=== PATIENT | female | born 1960 | race Caucasian/White ===

== ENCOUNTER → 2016-02-27 | Outpatient (CLI) | payer OTHER ==
[2016-02-27 16:45] LABS: HEMOGLOBIN A1C 9.63 % (4.2-6.0); MEAN BLOOD GLUCOSE (CALC) 234.679 mg/dL
== END ==
LOC: LAB 16:21
PROVIDERS: ATTEND Family Medicine
DX: E11.9 Type 2 diabetes mellitus without complications (principal)
CPT/HCPCS: 36415; 83036

== ENCOUNTER → 2016-02-28 | Outpatient (CLI) | payer OTHER ==
--- NOTE | 2016-02-28 15:03 | DI ---
XR FOREARM 2VW,02/28/2016 11:13 AM: Clinical History: Injury of the left upper extremity. Previous Exam: None at this facility. Findings: AP and lateral views of the left forearm are obtained, and demonstrate anatomic alignment without fra ctures. There is some soft tissue irregularity and postsurgical changes within the cubital fossa. A few peripheral vascular calcifications are also seen. Impression: No fractures.
== END ==
LOC: RAD 11:25
PROVIDERS: ATTEND Family Medicine
DX: T22.032A Burn of unspecified degree of left upper arm, initial encounter (principal); X17.XXXA Contact with hot engines, machinery and tools, initial encounter; Y93.G3 Activity, cooking and baking
CPT/HCPCS: 73090

== ENCOUNTER → 2016-03-15 | Outpatient (CLI) | payer OTHER ==
[2016-03-15 10:03] LABS: HEMATOCRIT 49.9 % (37.0-47.0); HEMOGLOBIN 16.7 g/dL (12.0-16.0); MEAN CORPUSCULAR HEMOGLOBIN 30.9 PG (27-31); MEAN CORPUSCULAR HGB CONC 33.5 g/dL (33-37); MEAN PLATELET VOLUME 10.6 FL (7.4-12.2); RDW COEFFICIENT OF VARIATION 15.2 % (11.5-14.5); RED BLOOD COUNT 5.4 10^6/uL (4.20-5.40); WHITE BLOOD COUNT 10.84 10^3/uL (4.8-10.8)
[2016-03-15 10:26] LABS: BLOOD UREA NITROGEN 18 mg/dL (7-22); CALCIUM 10.1 mg/dL (8.7-10.7); CHLORIDE 106 meq/L (98-112); CREATININE 0.8 mg/dL (0.50-1.20); EST GLOMERULAR FILTRATION > 60 (>60 ml/min/1.73m(2)); GLUCOSE 130 mg/dL (78-110); PHOSPHORUS 2.5 mg/dl (2.4-4.3); POTASSIUM 4.2 meq/L (3.8-5.2); SODIUM 140 meq/L (135-145)
== END ==
LOC: LAB 09:41
PROVIDERS: ATTEND Internal Medicine Nephrology
DX: I12.9 Hypertensive chronic kidney disease with stage 1 through stage 4 chronic kidney disease, or unspecified chronic kidney disease (principal); N18.2 Chronic kidney disease, stage 2 (mild); D63.1 Anemia in chronic kidney disease; N25.81 Secondary hyperparathyroidism of renal origin; Z94.0 Kidney transplant status
CPT/HCPCS: 36415; 80069; 80197; 83970; 85027

== ENCOUNTER → 2016-05-27 | Outpatient (CLI) | payer OTHER ==
[2016-05-27 07:58] LABS: HEMOGLOBIN A1C 7.97 % (4.2-6.0)
== END ==
LOC: LAB 07:38
PROVIDERS: ATTEND Family Medicine
DX: E11.9 Type 2 diabetes mellitus without complications (principal); Z79.4 Long term (current) use of insulin
CPT/HCPCS: 36415; 83036

== ENCOUNTER → 2016-08-26 | Outpatient (CLI) | payer OTHER ==
[2016-08-26 12:11] LABS: HEMOGLOBIN A1C 8.26 % (4.2-6.0)
== END ==
LOC: LAB 11:44
PROVIDERS: ATTEND Family Medicine
DX: E11.9 Type 2 diabetes mellitus without complications (principal); Z79.4 Long term (current) use of insulin
CPT/HCPCS: 36415; 83036

== ENCOUNTER → 2016-09-09 | Outpatient (CLI) | payer OTHER ==
[2016-09-09 07:42] LABS: HEMOGLOBIN A1C 7.82 % (4.2-6.0)
== END ==
LOC: LAB 07:17
PROVIDERS: ATTEND Family Medicine
DX: E11.9 Type 2 diabetes mellitus without complications (principal); Z79.4 Long term (current) use of insulin
CPT/HCPCS: 36415; 83036

== ENCOUNTER → 2016-09-17 | Outpatient (CLI) | payer OTHER ==
[2016-09-17 07:37] LABS: HEMATOCRIT 48.7 % (37.0-47.0); HEMOGLOBIN 16.2 g/dL (12.0-16.0); MEAN CORPUSCULAR HEMOGLOBIN 30.1 PG (27-31); MEAN CORPUSCULAR HGB CONC 33.3 g/dL (33-37); MEAN CORPUSCULAR VOLUME 90.4 FL (81-99); MEAN PLATELET VOLUME 10.1 FL (7.4-12.2); RED BLOOD COUNT 5.39 10^6/uL (4.20-5.40)
[2016-09-17 09:28] LABS: BLOOD UREA NITROGEN 25 mg/dL (7-22); BUN/CREATININE RATIO 27.77 (6-20); CALCIUM 9.4 mg/dL (8.7-10.7); EST GLOMERULAR FILTRATION > 60 (>60 ml/min/1.73m(2)); SERUM ALBUMIN 3.9 g/dL (3.5-4.8)
== END ==
LOC: LAB 07:16
PROVIDERS: ATTEND Internal Medicine Nephrology
DX: N18.2 Chronic kidney disease, stage 2 (mild) (principal); Z94.0 Kidney transplant status
CPT/HCPCS: 36415; 80069; 80197; 83970; 85027

== ENCOUNTER → 2016-09-27 | Outpatient (CLI) | payer OTHER | LOC: LAB 07:39 | PROVIDERS: ATTEND Internal Medicine Nephrology | DX: Z94.0 Kidney transplant status (principal) | CPT/HCPCS: 36415; 80197 ==

== ENCOUNTER → 2016-10-15 | Outpatient (CLI) | payer OTHER ==
--- NOTE | 2016-10-15 11:23 | DI ---
CT ABDOMEN SCAN WITHOUT IV CONTRAST, 10/15/2016 10:13 AM : Clinical History: Polycystic kidney disease. Previous Exam: 03/20/2007. Scans are performed from the lower lung bases through the liver and kidneys without IV contrast. Sagi ttal and coronal reformatted images are generated. The lung bases are clear. The liver is normal. The patient is status post cholecystectomy and the com mon bile duct measures 13-14 mm, but there is no evidence of intrahepatic biliary dilatation or of a common duct stone. There is no abnormality of the spleen, pancreas, and adrenal glands. Both kidneys demonstrate multiple cysts consistent with the clinical history of polycystic renal disease. Both hanna litatively and quantitatively, both kidneys have decreased significantly in size since the previous s tudy. The previous measurements for the right and left kidneys in the AP, transverse, and longitudina l dimensions were approximately 75 x 80 x 135 mm and 75 x 8 x 122 mm. The measurements for the right and left kidneys on the current study are approximately 50 x 65 x 115 mm and 65 x 60 x 107 mm. The vi sualized portions of solid renal tissue bilaterally have decreased and calcifications have developed in both kidneys, but it is difficult to determine whether these are in parenchymal tissue or in calyc es. These calcifications range in size up to 3 mm in diameter. There is no hydronephrosis or hydroure ter. No renal or ureteral calculi are present. There are no abnormal retrocrural or periaortic nodes. No ascites is present. READIN. Polycystic renal disease without evidence of polycystic liver or pancreatic disease. Both kidneys have decreased in size and parenchymal tissue volume since the previous study. Punctate calcificatio ns ranging up to 3 mm in diameter have developed in both kidneys it is difficult to determine if thes e are in the renal parenchyma, in the renal calyces, or vascular in origin. There is no obvious hydro nephrosis or hydroureter on either side. No solid renal mass is present. 2. The patient is status post cholecystectomy. Although the common duct is generous in size at 13-14 mm, there is no evidence of intrahepatic biliary dilatation. CT PELVIS SCAN WITHOUT IV CONTRAST, 10/15/2016 10:13 AM : Clinical History: See above. Previous Exam: None. Scans are performed from the inferior margin of the liver and kidneys to the symphysis pubis without IV contrast. There is no free fluid collection and there is no adenopathy. The appendix is not visualized but ther e are some surgical clips in proximity to the expected location of the appendix and the patient may h ave had an appendectomy. There is no inflammatory mass either in the cecum or in the right lower quad rant. The small bowel, terminal ileum, and ileocecal valve are normal. The colon is also normal. Ther e are no hernias. 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 No renal calcifications are identified. The uterus and both ovaries are normal. READIN. Status post renal transplant. The transplanted kidney has a normal appearance without evidence of hydronephrosis. No calculi are visualized. 2. The remaining portions of the pelvic CT scan are normal.
== END ==
LOC: CT 09:49
PROVIDERS: ATTEND Urology
DX: Q61.3 Polycystic kidney, unspecified (principal); Z94.0 Kidney transplant status
CPT/HCPCS: 74176